=== PATIENT | female | born 2000 ===

== ENCOUNTER 2019-03-26 18:23 | Emergency (ER) | payer SELFPAY ==
[2019-03-26] MEDS ORDERED: AZITHROMYCIN 250 MG TAB PO ONE (19:05)
[2019-03-26 19:13] VITALS: BP 124/89; PULSE 91; RESP 16; TEMP 98.1; O2SAT 96
[2019-03-26] MEDS ORDERED: AZITHROMYCIN 250 MG TAB ONE (19:20)
[2019-03-26 19:52] LABS: APPEARANCE,URINE Slightly Cloudy; BILIRUBIN,URINE 1+ (NEGATIVE); COLOR,URINE Dark yellow; GLUCOSE, URINE (UA) NEGATIVE (NEGATIVE); KETONES,URINE NEGATIVE (NEGATIVE); LEUKOCYTE ESTERASE ,URINE NEGATIVE (NEGATIVE); NITRATE,URINE NEGATIVE (NEGATIVE); OCCULT BLOOD,URINE NEGATIVE (NEG-TRACE)
[2019-03-26 19:57] LABS: ICTOTEST,URINE NEGATIVE (NEGATIVE)
[2019-03-26] MEDS ORDERED: CEFTRIAXONE 1 GM PDS IM ONE ×2 (19:57→20:00)
[2019-03-26] MEDS ORDERED: LIDOCAINE HCL 1% MPF 30 SOL ONE (19:58)
[2019-03-26] MEDS ORDERED: CEFTRIAXONE 1 GM PDS ONE (19:58)
== END 2019-03-26 20:20 | disposition home or self-care (01) | DRG 761 ==
LOC: ED 18:23
DX: N89.8 Other specified noninflammatory disorders of vagina (principal); N76.0 Acute vaginitis
CPT/HCPCS: 81003; 84703; 87088; 87210; 96372; 99283; J0696; A9270-GY; J2001